=== PATIENT | female | born 1950 | race American Indian/Alaskan Native ===

== ENCOUNTER 2020-11-28 06:13 | Day surgery (SDC) | payer MEDICARE ==
[2020-11-28] MEDS ORDERED: SODIUM CHLORIDE 0.9% 1000 ML 1,000 ML IV SCH (07:00)
--- NOTE | 2020-11-28 08:13 | Anesthesia Consultation ---
Anesthesia Consult and Med Hx Date of service: 11/28/20 - Airway Anesthetic Teeth Evaluation: Dentures (Upper full plate and lower partial) ROM Head & Neck: Adequate Mental/Hyoid Distance: Inadequate Mallampati Class: Class II Intubation Access Assessment: Probably Good - Pulmonary Exam CTA: Yes - Pre-Operative Health Status ASA Pre-Surgery Classification: ASA3 Proposed Anesthetic Plan: MAC - Pulmonary Hx Smoking: No Hx Asthma: Yes Hx Sleep Apnea: Yes (Has not used CPAP machine since a year) - Cardiovascular System Hx Hypertension: Yes Hx Heart Attack/AMI: No Hx Angina: No Hx Percutaneous Transluminal Coronary Angioplasty (PTCA): No - Central Nervous System Hx Neuromuscular Disorder: Yes (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 Uses Lyrica.) Hx Seizures: Yes ("some times I stop half in a sentence. MyPCA says it's a form of seizure". ) CVA: No Hx Psychiatric Problems: No - Gastrointestinal Hx Ulcer: No Hx Gastroesophageal Reflux Disease: No - Endocrine Hx Renal Disease: No Hx Liver Disease: No Hx Insulin Dependent Diabetes: No Hx Non-Insulin Dependent Diabetes: No Hx Thyroid Disease: No - Other Systems Hx Alcohol Use: No Hx Substance Use: No Hx Cancer: No Hx Obesity: Yes (BMI 44.1kg) - Additional Comments Anesthesia Medical History Comments: Patient denied previous anesthesia complication.
--- NOTE | 2020-11-28 08:19 | Anesthesia Day of Surgery ---
Anesthesia Day of Surgery - Day of Surgery Patient Examined: Yes Patient H&P Reviewed: Yes Patient is NPO: Yes Beta Blockers: No Cardiac Clearance: No Pulmonary Clearance: No
[2020-11-28] MEDS ORDERED: LIDOCAINE MPF (2%) 20 MG/1 ML VIAL 5 ML ONE (08:21)
[2020-11-28] MEDS ORDERED: propofoL 200 MG/20 ML VIAL IV ONE (08:22)
--- NOTE | 2020-11-28 10:52 | Post Anesthesia Evaluation ---
- Post Anesthesia Evaluation Patient Participated: Yes Airway Patent: Yes Stable Respiratory Function: Yes Nausea/Vomiting: No Temp > 96.8F: Yes Pain Manageable: Yes Adequeate Hydration: Yes Anesthesia Complications: No
== END 2020-11-28 06:14 | disposition home or self-care (01) ==
LOC: MERGE 06:13 → GIO 06:13 → EDSEX 10:00
PROVIDERS: ATTEND Internal Medicine Gastroenterology
DX: Z12.11 Encounter for screening for malignant neoplasm of colon (principal); Z53.8 Procedure and treatment not carried out for other reasons; I10 Essential (primary) hypertension; J45.909 Unspecified asthma, uncomplicated; G47.30 Sleep apnea, unspecified; E66.9 Obesity, unspecified; Z79.899 Other long term (current) drug therapy; Z86.010 Personal history of colon polyps; Z68.41 Body mass index [BMI] 40.0-44.9, adult
CPT/HCPCS: J2704; J7030

== ENCOUNTER 2020-11-28 07:12 | Day surgery (SDC) | payer MEDICARE ==
[~2020-11-28 07:12] MED LIST: SODIUM CHLORIDE 0.9% 1000 ML 1,000 ML IV SCH; WATER FOR IRRIG STERILE 1,000 ML BOTTLE ONE
--- NOTE | 2020-11-28 08:46 | Short Stay Summary ---
Short Stay Documentation Date of service: 11/28/20 Narrative H&P: The patient presents for surveillance colonoscopy for polyps. Last study 5 years ago. - History Past Medical History: anemia, COPD, hypertension, hyperlipidemia, other (Morbid obesity, asthma) Past Surgical History: Other (orthopedic surgery) Social history: no significant social history, no smoking, no alcohol abuse - Allergies and Medications Current Medications: Allergies No Known Allergies Allergy (Unverified 10/30/20 10:04) Home Medications Medication Instructions Recorded Confirmed Last Taken Type Gabapentin 10/30/20 Unknown History Levothyroxine 10/30/20 Unknown History Loratadine 10/30/20 Unknown History Pepcid 10/30/20 Unknown History Triamterene-Hctz 37.5-25 mg Cp 10/30/20 Unknown History Active Medications Sodium Chloride (Nacl 0.9% 1000 Ml) 1,000 mls @ 50 mls/hr IV DIRECT AGATA - Physical exam General appearance: no acute distress, well-nourished, obese Integumentary: no rash, no growths, no abnormal pigmentation HEENT: PERRLA, EOMI, Mucous membr. moist/pink Lungs: Clear to auscultation, Normal air movement Breasts: deferred Heart: Regular rate, Normal S1, Normal S2, No murmurs, no Gallops Gastrointestinal: normoactive bowel sounds, no tenderness, no distended, no masses, no guarding, no organomegaly Female Genitourinary: deferred Rectal Exam: normal exam-external/orifice Extremities: no ischemia, pulses intact, pulses symmetrical, No edema, normal temperature, normal color, Full ROM Neurological: Normal gait, Normal speech, Strength at 5/5 X4 ext, Normal tone, Sensation intact, Cranial nerves 3-12 NL - Brief post op/procedure progress note Date of procedure: 11/28/20 Findings: see dictation Estimated blood loss: none Pathology: none Condition: stable - Disposition Condition at discharge: Good Disposition: DC-01 TO HOME OR SELFCARE - Discharge Diagnoses (1) History of colon polyps Status: Acute Short Stay Discharge Plan Activity: other (no driving for 24 hours) Weight Bearing Status: Weight Bear as Tolerated Diet: regular Follow up with: BRENDA LOCKE NP [Primary Care Provider] - 7 Days
--- NOTE | 2020-11-28 08:47 | Operative Report ---
Operative Report Operative Report: Date of procedure: 11/28/2020 Preprocedure diagnosis: History of colon polyps. Last colonoscopy 5 years ago. Post procedure diagnosis: Few left colon diverticula otherwise normal. Procedure: Colonoscopy to the cecum Endoscopist: Dr. Guerrero Anesthesia: Monitored anesthesia care per anesthesia department Estimated blood loss: 0 Medications: Monitored anesthesia care. See separate report by anesthesia for details. After careful discussion of the nature and purpose of the procedure as well as d etails of the technique risks benefits and alternatives the patient gave consent. Please see recent history and physical from the office. The patient was placed in the left lateral decubitus position and medicated per anesthesia. A rectal exam was performed sphincter tone was normal there were no masses palpable. The Avitiden 570 scope was passed transanally and advanced under continuous direc t vision without difficulty to the cecum. The colon was well prepared. The cecum was normal. The ascending colon was normal and on forward and retroflexed views. The transverse colon, descending colon, and sigmoid colon were normal except for a few diverticula in the sigmoid colon. The rectum was normal on forward and retroflexed views. The procedure was well-tolerated overall and the patient was observed in recovery. Conclusions: Few sigmoid diverticula, otherwise normal colonoscopy to the cecum. Plan: Repeat colonoscopy in 5 years if the patient remains in good health. Signed electronically: Kevin Guerrero M.D.
== END 2020-11-28 07:13 | disposition home or self-care (01) ==
LOC: GIO 07:12
PROVIDERS: ATTEND Internal Medicine Gastroenterology
DX: Z12.11 Encounter for screening for malignant neoplasm of colon (principal); K57.30 Diverticulosis of large intestine without perforation or abscess without bleeding; I10 Essential (primary) hypertension; J45.909 Unspecified asthma, uncomplicated; G47.30 Sleep apnea, unspecified; E66.9 Obesity, unspecified; Z79.899 Other long term (current) drug therapy; Z86.010 Personal history of colon polyps; Z68.41 Body mass index [BMI] 40.0-44.9, adult